=== PATIENT | female | born 1965 | race Asian ===

== ENCOUNTER 2024-06-11 17:37 | Emergency (ER) | payer BC ==
[~2024-06-11] VITALS: Ht 157.5 cm; Wt 93.0 kg
[2024-06-11 18:00] VITALS: BP_SYST 162; PULSE 120; RESP 18; TEMP 99.9; O2SAT 93
[2024-06-11] MEDS: ACETAMINOPHEN 500 MG TABLET PO ONE (19:34)
[2024-06-11 19:44] LABS: BASOPHILS % (AUTO) 0.5 % (0.0-2.0); EOSINOPHILS # (AUTO) 0.1 K/uL (0.0-0.4); EOSINOPHILS % (AUTO) 0.6 % (0.0-4.0); HEMATOCRIT 40.6 % (36-48); HEMOGLOBIN 13.4 g/dL (12.0-16.0); LYMPHOCYTES # (AUTO) 0.5 K/uL (1.0-5.5); LYMPHOCYTES % (AUTO) 5.4 % (20.5-51.5); MEAN CORPUSCULAR HEMOGLOBIN 29 pg (27-31); MEAN CORPUSCULAR HGB CONC 33 % (32-36); MEAN CORPUSCULAR VOLUME 89 fL (79.0-98.0); MONOCYTES # (AUTO) 0.8 K/uL (0.0-1.0); MONOCYTES % (AUTO) 8.8 % (1.7-9.3); NEUTROPHILS # (AUTO) 7.8 K/uL (1.8-7.7); NEUTROPHILS % (AUTO) 84.7 % (40.0-70.0); PLATELET COUNT (AUTO) 317 K/uL (130-430); RED BLOOD CELL COUNT(AUTO) 4.59 MIL/uL (4.2-6.2); RED CELL DISTRIBUTION WIDTH 13.9 % (9.0-15.0); WHITE BLOOD COUNT (AUTO) 9.2 K/uL (4.8-10.8)
[2024-06-11 20:00] LABS: ANION GAP 8 (5-15); CARBON DIOXIDE 25 mmol/L (23-29); CHLORIDE 103 mmol/L (98-107); CREATININE 0.95 mg/dL (0.55-1.30); GFR AFRICAN AMERICAN 78 mL/min (>90); GLUCOSE 116 mg/dL (74-106); POTASSIUM 3.5 mmol/L (3.5-5.1); SODIUM SERUM 136 mmol/L (136-145); UREA NITROGEN, BLOOD 13 mg/dL (8-21)
[2024-06-11 20:01] LABS: GFR NON AFRICAN-AMERICAN 64 mL/min (>90)
[2024-06-11] MEDS ORDERED: NIRM1TAB9 PO (20:52)
[2024-06-11] MEDS ORDERED: ACET-2634 PO (20:52)
[2024-06-11] MEDS ORDERED: ALBMDI INH (20:52)
[2024-06-11 20:54] VITALS: BP_SYST 109; PULSE 107; RESP 22; TEMP 98.6; O2SAT 96
== END 2024-06-11 21:16 | disposition home or self-care (01) ==
LOC: SED 17:37
DX: U07.1 COVID-19 (principal); R07.89 Other chest pain; B34.9 Viral infection, unspecified; R00.0 Tachycardia, unspecified; Z79.899 Other long term (current) drug therapy
CPT/HCPCS: 36415; 71045; 80048; 84484; 85025; 93005; 99285